=== PATIENT | female | born 1995 | race Two or more races ===

== ENCOUNTER 2020-08-11 23:48 | Emergency (ER) | payer MEDICAID, OTHER ==
[~2020-08-11] VITALS: Ht 167.6 cm; Wt 68.0 kg
[2020-08-11 23:50] VITALS: BP 119/68
== END 2020-08-12 04:09 | disposition home or self-care (01) ==
LOC: ER 23:50
DX: R07.81 Pleurodynia (principal)
CPT/HCPCS: 71101; 81025